=== PATIENT | male | born 1950 | race Caucasian/White ===

== ENCOUNTER 2022-09-30 12:45 | Inpatient (IN) | payer OTHER, MEDICARE ==
[~2022-09-30] VITALS: Ht 175.3 cm; Wt 167.8 kg
[2022-09-30] MEDS ORDERED: DOXAZOSIN MESYLA4 M2 PO (13:12)
[2022-09-30] MEDS ORDERED: TADA10TA PO (13:20)
[2022-09-30] MEDS ORDERED: FURO40 (13:20)
[2022-09-30] MEDS ORDERED: Vitamin D400 UNI1 PO (13:20)
[2022-09-30 13:22] LABS: BASOPHILS ABSOLUTE AUTO 0.04 K/mm3 (0.00-0.23); BASOPHILS PERCENT AUTO 1 % (0-2); EOSINOPHILS ABSOLUTE AUTO 0.05 K/mm3 (0.00-0.68); EOSINOPHILS PERCENT AUTO 1 % (0-6); Hematocrit 47.1 % (37.0-53.0); Hemoglobin 15.4 g/dL (13.5-17.5); IMMATURE GRAN ABSOLUTE AUTO 0.05 K/mm3 (0.00-0.10); IMMATURE GRAN PERCENT AUTO 1 % (0-1); LYMPHOCYTES ABSOLUTE AUTO 0.81 K/mm3 (0.84-5.20); LYMPHOCYTES PERCENT AUTO 12 % (21-46); MONOCYTES ABSOLUTE AUTO 0.56 K/mm3 (0.16-1.47); MONOCYTES PERCENT AUTO 8 % (4-13); Mean Corpuscular HGB Conc 32.7 g/dL (31.5-36.5); Mean Corpuscular Volume 86 fL (80-100); Mean Platelet Volume 10.8 fL (9.1-12.4); NEUTROPHILS ABSOLUTE AUTO 5.43 K/mm3 (1.96-9.15); NEUTROPHILS PERCENT AUTO 78 % (41-73); Platelet Count 171 K/mm3 (150-400); RDW Coefficient Variation 13.8 % (11.7-14.2); RDW Standard Deviation 42.8 fL (35.1-46.3); White Blood Cell Count 6.94 K/mm3 (4.00-11.30)
[2022-09-30 13:48] LABS: Albumin, Blood 3.8 g/dL (3.4-5.0); Bilirubin, Total 0.7 mg/dL (0.1-1.0); Calcium, Blood 8.9 mg/dL (8.5-10.1); Creatinine, Blood 1.31 mg/dL (0.60-1.20); Globulin, Blood 3.7 g/dL (2.2-4.0); Potassium, Blood 4.2 mmol/L (3.5-5.5); Total Protein, Blood 7.5 g/dL (6.4-8.2)
[2022-09-30 18:25] VITALS: BP 185/93
--- NOTE | 2022-09-30 18:35 | NUR ---
PT ASSESSED FOR IGNITION SOURCES, NO FINDINGS.
--- NOTE | 2022-09-30 18:35 | NUR ---
PT ARRIVED TO THE ROOM AT APPROXIMATELYH 1825. PT ALERT AND ORIENTED AND ABLE TO TRANSFER INDEPENDENTLY. PT REPORTS PAIN WITH DEEP BREATHING BUT OTHERWISE DENIES PAIN. CHEST TUBE PLACED TO -20 SUCTION WHICH WAS CONFIRMED WITH DR. VALENZUELA WHEN CONSULT WAS CALLED. PT DENIES SHORTNESS OF BREATH AT THIS TIME. WILL CONTINUE TO MONITOR.
[2022-09-30 19:14] VITALS: BP 182/96
--- NOTE | 2022-09-30 21:58 | NUR ---
CALLED DR. RIOJAS REGARDING PT'S BIPAP SETTINGS FROM [facility] AND THE CURRENT HOSPITAL SETTINGS SET BY RT. DR. RIOJAS VERBALIZED TO KEEP BIPAP SETTINGS PER RT AT THIS TIME AND TO MONITOR PT T/O NOC. THIS RN NOTIFIED RT.
[2022-09-30 22:28] VITALS: BP 178/90
[2022-10-01 00:11] VITALS: BP 160/91
[2022-10-01 04:26] VITALS: BP 181/98
--- NOTE | 2022-10-01 04:52 | NUR ---
SHIFT SUMMARY PT TOLERATED BIPAP SETTINGS T/O NOC. SATS STABLE ON RA WHILE AWAKE. DENIES SOB/CHEST PAIN. REPORTS MINIMAL PAIN WITH DEEP BREATHING AT CHEST TUBE SITE. CHEST TUBE REMAINS TO WALL SUCTION WITH SS DRAINAGE IN CANISTER. NO CREPITUS NOTED. USES URINAL INDEP. EDUCATED ON FIRE SAFETY POLICY. USES CALL LIGHT APPROPRIATELY.
[2022-10-01 05:30] LABS: BASOPHILS ABSOLUTE AUTO 0.04 K/mm3 (0.00-0.23); BASOPHILS PERCENT AUTO 1 % (0-2); EOSINOPHILS ABSOLUTE AUTO 0.15 K/mm3 (0.00-0.68); EOSINOPHILS PERCENT AUTO 2 % (0-6); Hematocrit 46.3 % (37.0-53.0); Hemoglobin 15.2 g/dL (13.5-17.5); IMMATURE GRAN ABSOLUTE AUTO 0.04 K/mm3 (0.00-0.10); IMMATURE GRAN PERCENT AUTO 1 % (0-1); LYMPHOCYTES PERCENT AUTO 15 % (21-46); MONOCYTES ABSOLUTE AUTO 0.87 K/mm3 (0.16-1.47); MONOCYTES PERCENT AUTO 11 % (4-13); Mean Corpuscular HGB 27.9 pg (26.0-34.0); Mean Corpuscular HGB Conc 32.8 g/dL (31.5-36.5); Mean Corpuscular Volume 85 fL (80-100); Mean Platelet Volume 11.1 fL (9.1-12.4); NEUTROPHILS ABSOLUTE AUTO 5.94 K/mm3 (1.96-9.15); NEUTROPHILS PERCENT AUTO 72 % (41-73); Platelet Count 174 K/mm3 (150-400); RDW Coefficient Variation 13.9 % (11.7-14.2); RDW Standard Deviation 42.8 fL (35.1-46.3); Red Blood Cell Count 5.44 M/mm3 (4.30-5.90); White Blood Cell Count 8.24 K/mm3 (4.00-11.30)
[2022-10-01 06:23] LABS: Albumin, Blood 3.3 g/dL (3.4-5.0); Albumin/Globulin Ratio 0.9 (0.8-1.8); Bilirubin, Total 0.7 mg/dL (0.1-1.0); Calcium, Blood 8.6 mg/dL (8.5-10.1); Creatinine, Blood 1.19 mg/dL (0.60-1.20); Globulin, Blood 3.7 g/dL (2.2-4.0)
[2022-10-01 08:10] VITALS: BP 186/102
--- NOTE | 2022-10-01 11:37 | NUR ---
CHEST TUBE TO WATER SEAL AT THIS TIME PER ORDER
[2022-10-01 14:08] VITALS: BP 175/102
--- NOTE | 2022-10-01 15:02 | NUR ---
CONTINUED HTN. PT DENIES ANY SYMPTOMS. 10MG HYDRALAZINE GIVEN, WILL CTM
[2022-10-01 16:32] VITALS: BP 154/94
--- NOTE | 2022-10-01 17:58 | NUR ---
SUMMARY: PT ADMITTED FOR PNEUMOTHORAX. A/O, VSS-BP BETTER TONIGHT. CHEST TUBE CONTINUES ON WATER SEAL, DRESSINGS ARE CDI. THERE IS SOME SS DRAINAGE IN TUBING. PT HAS DENIED NEED FOR PAIN MEDICATION, DENIES SOB. STABLE ON RA. PLAN IS FOR CLAMPING CHEST TUBE TONIGHT AT 0000. PT USING CALL LIGHT. WILL PASS REPORT TO JERRY BRAN.
[2022-10-01 19:09] VITALS: BP 148/79
[2022-10-02 06:11] VITALS: BP 172/94
--- NOTE | 2022-10-02 06:23 | NUR ---
SHIFT SUMMARY ADMIT FOR PNEUMO TO LEFT. PIGTAIL CHEST TUBE TO LEFT UPPER ANTERIOR COVERED W/ PRESSURE TAPE. CLAMPED AT MN ORDERED. PT DENIES SOB, PAIN, OR DISCOMFORT T/O SHIFT. LUNGS CLEAR ALTHOUGH DIMINISHED IN LOWER LOBES. SITE ATTEMPT TO L LATERAL UNDERARM CLEAR W/ NO REDNESS, SWELLING, OR DRAINAGE. PT CONTINUES TO EXPERIENCE HTN THAT REQUIRED HYDROLAZINE THIS A.M. PT URINATING INDEPEND W/ URINAL AT BEDSIDE. IV-SL TO R AC, NO CONCERNS. PT AWAITING A.M. CXR TO DETERMINE DISCHARGE. CALL LIGHT W/ IN REACH, NO ACUTE CHANGES THIS SHIFT.
[2022-10-02 07:22] VITALS: BP 156/97
[2022-10-02 14:20] VITALS: BP 156/97
[2022-10-02] MEDS ORDERED: LOSA50 PO (15:28)
[2022-10-02 15:39] VITALS: BP 182/113
--- NOTE | 2022-10-02 17:03 | NUR ---
DISCHARGE PT LEFT VIA [facility] WITH [facility], ALL BELONGINGS WITH PATIENT. PT GOING TO ROOM 4431 AT [facility]. REPORT CALLED TO ANAM. PT DENIES SOB DURING SHIFT, CHEST TUBE REMAINS CLAMPED SINCE MIDNIGHT. PT TOLERATING DIET WELL, CALLS APPROPRIATLY AND MAKES HIS NEEDS MET. IV SALINE LOCKED TO R-AC.
--- NOTE | 2022-10-02 17:40 | NUR ---
final report given to omar altamirano.
== END 2022-10-02 17:10 | disposition short-term general hospital (02) | DRG 200 ==
LOC: ER 12:45 → SURS 12:46
PROVIDERS: Emergency Medicine; Family Medicine; ADMIT Internal Medicine
PROC: 0W9B30Z Drainage of Left Pleural Cavity with Drainage Device, Percutaneous Approach (ICD-10-PCS; principal; 2022-09-30)
PROC: 5A09357 Assistance with Respiratory Ventilation, Less than 24 Consecutive Hours, Continuous Positive Airway Pressure (ICD-10-PCS; 2022-10-02)
DX: J93.83 Other pneumothorax (principal); I50.32 Chronic diastolic (congestive) heart failure; J98.11 Atelectasis; Z68.43 Body mass index [BMI] 50.0-59.9, adult; G47.33 Obstructive sleep apnea (adult) (pediatric); E66.9 Obesity, unspecified; I11.0 Hypertensive heart disease with heart failure; E89.0 Postprocedural hypothyroidism; H26.9 Unspecified cataract; K42.9 Umbilical hernia without obstruction or gangrene; N40.0 Benign prostatic hyperplasia without lower urinary tract symptoms; F17.210 Nicotine dependence, cigarettes, uncomplicated; I71.21 Aneurysm of the ascending aorta, without rupture; Z66 Do not resuscitate; Z88.0 Allergy status to penicillin; Z79.899 Other long term (current) drug therapy
CPT/HCPCS: 32551; 36415; 71045; 71046; 71250; 80053; 85025; 93005; 93010; 94660; 94762; 99285-25; A9270; J0360

== ENCOUNTER 2023-08-28 11:30 | Emergency (ER) | payer OTHER, MEDICARE ==
[~2023-08-28] VITALS: Ht 175.3 cm; Wt 151.9 kg
[~2023-08-28 11:30] MED LIST: DOXAZOSIN MESYLA4 M2 PO; FURO40; LOSA50 PO; TADA10TA PO; Vitamin D400 UNI1 PO
[2023-08-28] MEDS ORDERED: Robaxin750 MG PO (14:43)
[2023-08-28] MEDS ORDERED: METPRE4DP PO (14:43)
[2023-08-28] MEDS ORDERED: CODACE30 PO (14:43)
[2023-08-28 15:14] VITALS: BP 153/92
== END 2023-08-28 15:10 | disposition home or self-care (01) ==
LOC: ER 11:30
DX: M54.50 Low back pain, unspecified (principal); G89.29 Other chronic pain; V43.52XA Car driver injured in collision with other type car in traffic accident, initial encounter; Z88.0 Allergy status to penicillin; Z79.899 Other long term (current) drug therapy; I10 Essential (primary) hypertension
CPT/HCPCS: 72131; 99283-25

== ENCOUNTER 2023-10-14 04:14 | Day surgery (SDC) | payer OTHER, MEDICARE ==
[~2023-10-14 04:14] MED LIST changes: +CODACE30 PO; +METPRE4DP PO; +Robaxin750 MG PO
== END 2023-10-14 23:02 | disposition home or self-care (01) ==
LOC: WOUND 04:14
DX: L97.822 Non-pressure chronic ulcer of other part of left lower leg with fat layer exposed (principal); I89.0 Lymphedema, not elsewhere classified; I10 Essential (primary) hypertension; I73.9 Peripheral vascular disease, unspecified; I87.2 Venous insufficiency (chronic) (peripheral); G47.30 Sleep apnea, unspecified; S81.802D Unspecified open wound, left lower leg, subsequent encounter; Z88.0 Allergy status to penicillin; V89.2XXD Person injured in unspecified motor-vehicle accident, traffic, subsequent encounter
CPT/HCPCS: G0463

== ENCOUNTER 2023-11-04 05:38 | Day surgery (SDC) | payer OTHER, MEDICARE | END 2023-11-04 23:14 | disposition home or self-care (01) | LOC: WOUND 05:38 | DX: L97.822 Non-pressure chronic ulcer of other part of left lower leg with fat layer exposed (principal); S81.802A Unspecified open wound, left lower leg, initial encounter; I73.9 Peripheral vascular disease, unspecified; I87.2 Venous insufficiency (chronic) (peripheral); V89.2XXA Person injured in unspecified motor-vehicle accident, traffic, initial encounter ==

== ENCOUNTER 2023-11-06 03:12 | Day surgery (SDC) | payer OTHER, MEDICARE | END 2023-11-06 23:48 | disposition home or self-care (01) | LOC: WOUND 03:12 | DX: L97.822 Non-pressure chronic ulcer of other part of left lower leg with fat layer exposed (principal); I87.2 Venous insufficiency (chronic) (peripheral) ==

== ENCOUNTER 2023-11-13 01:46 | Day surgery (SDC) | payer OTHER, MEDICARE | END 2023-11-13 23:14 | disposition home or self-care (01) | LOC: WOUND 01:46 | DX: I87.312 Chronic venous hypertension (idiopathic) with ulcer of left lower extremity (principal); L97.222 Non-pressure chronic ulcer of left calf with fat layer exposed; I87.2 Venous insufficiency (chronic) (peripheral); I73.9 Peripheral vascular disease, unspecified; V89.2XXD Person injured in unspecified motor-vehicle accident, traffic, subsequent encounter ==

== ENCOUNTER 2023-11-20 01:51 | Day surgery (SDC) | payer OTHER, MEDICARE | END 2023-11-20 23:33 | disposition home or self-care (01) | LOC: WOUND 01:51 | DX: I87.312 Chronic venous hypertension (idiopathic) with ulcer of left lower extremity (principal); L97.222 Non-pressure chronic ulcer of left calf with fat layer exposed; I87.2 Venous insufficiency (chronic) (peripheral); I73.9 Peripheral vascular disease, unspecified; V89.2XXD Person injured in unspecified motor-vehicle accident, traffic, subsequent encounter ==

== ENCOUNTER 2023-12-04 04:33 | Day surgery (SDC) | payer OTHER, MEDICARE | END 2023-12-05 01:45 | disposition home or self-care (01) | LOC: WOUND 04:33 | DX: I87.312 Chronic venous hypertension (idiopathic) with ulcer of left lower extremity (principal); L97.222 Non-pressure chronic ulcer of left calf with fat layer exposed; I87.2 Venous insufficiency (chronic) (peripheral); I73.9 Peripheral vascular disease, unspecified; V89.2XXD Person injured in unspecified motor-vehicle accident, traffic, subsequent encounter ==

== ENCOUNTER 2023-12-10 03:01 | Day surgery (SDC) | payer OTHER, MEDICARE | END 2023-12-10 23:00 | disposition home or self-care (01) | LOC: WOUND 03:01 | DX: I87.312 Chronic venous hypertension (idiopathic) with ulcer of left lower extremity (principal); L97.222 Non-pressure chronic ulcer of left calf with fat layer exposed; I87.2 Venous insufficiency (chronic) (peripheral); I73.9 Peripheral vascular disease, unspecified ==

== ENCOUNTER 2023-12-18 01:15 | Day surgery (SDC) | payer OTHER, MEDICARE | END 2023-12-19 03:08 | disposition home or self-care (01) | LOC: WOUND 01:15 | DX: I87.312 Chronic venous hypertension (idiopathic) with ulcer of left lower extremity (principal); L97.222 Non-pressure chronic ulcer of left calf with fat layer exposed; I73.9 Peripheral vascular disease, unspecified; I10 Essential (primary) hypertension ==

== ENCOUNTER 2023-12-25 04:01 | Day surgery (SDC) | payer OTHER, MEDICARE | END 2023-12-26 01:28 | disposition home or self-care (01) | LOC: WOUND 04:01 | DX: I87.312 Chronic venous hypertension (idiopathic) with ulcer of left lower extremity (principal); L97.222 Non-pressure chronic ulcer of left calf with fat layer exposed; I87.2 Venous insufficiency (chronic) (peripheral); I73.9 Peripheral vascular disease, unspecified; V89.2XXD Person injured in unspecified motor-vehicle accident, traffic, subsequent encounter ==

== ENCOUNTER 2024-01-01 03:00 | Day surgery (SDC) | payer OTHER, MEDICARE | END 2024-01-01 23:45 | disposition home or self-care (01) | LOC: WOUND 03:00 | DX: I87.312 Chronic venous hypertension (idiopathic) with ulcer of left lower extremity (principal); L97.822 Non-pressure chronic ulcer of other part of left lower leg with fat layer exposed; I73.9 Peripheral vascular disease, unspecified ==

== ENCOUNTER 2024-01-07 03:05 | Day surgery (SDC) | payer OTHER, MEDICARE ==
[2024-01-07] MEDS ORDERED: Lidocaine HCl 4% Cream 5 GM ONE (15:01)
== END 2024-01-07 23:29 | disposition home or self-care (01) ==
LOC: WOUND 03:05
DX: I87.312 Chronic venous hypertension (idiopathic) with ulcer of left lower extremity (principal); L97.822 Non-pressure chronic ulcer of other part of left lower leg with fat layer exposed; I73.9 Peripheral vascular disease, unspecified; I10 Essential (primary) hypertension
CPT/HCPCS: A9270

== ENCOUNTER 2024-01-15 04:16 | Day surgery (SDC) | payer OTHER, MEDICARE | END 2024-01-16 00:05 | disposition home or self-care (01) | LOC: WOUND 04:16 | DX: I87.312 Chronic venous hypertension (idiopathic) with ulcer of left lower extremity (principal); L97.222 Non-pressure chronic ulcer of left calf with fat layer exposed; I87.2 Venous insufficiency (chronic) (peripheral); I73.9 Peripheral vascular disease, unspecified; V89.2XXD Person injured in unspecified motor-vehicle accident, traffic, subsequent encounter ==

== ENCOUNTER 2024-01-22 04:27 | Day surgery (SDC) | payer OTHER, MEDICARE | END 2024-01-23 03:12 | disposition home or self-care (01) | LOC: WOUND 04:27 | DX: I87.312 Chronic venous hypertension (idiopathic) with ulcer of left lower extremity (principal); L97.222 Non-pressure chronic ulcer of left calf with fat layer exposed; I87.2 Venous insufficiency (chronic) (peripheral); I73.9 Peripheral vascular disease, unspecified; V89.2XXD Person injured in unspecified motor-vehicle accident, traffic, subsequent encounter ==

== ENCOUNTER 2024-02-10 00:32 | Day surgery (SDC) | payer OTHER, MEDICARE | END 2024-02-10 23:06 | disposition home or self-care (01) | LOC: WOUND 00:32 | DX: I87.312 Chronic venous hypertension (idiopathic) with ulcer of left lower extremity (principal); L97.822 Non-pressure chronic ulcer of other part of left lower leg with fat layer exposed; I87.2 Venous insufficiency (chronic) (peripheral); I73.9 Peripheral vascular disease, unspecified; V89.2XXD Person injured in unspecified motor-vehicle accident, traffic, subsequent encounter ==

== ENCOUNTER 2024-02-19 04:57 | Day surgery (SDC) | payer OTHER, MEDICARE | END 2024-02-19 23:00 | disposition home or self-care (01) | LOC: WOUND 04:57 | DX: I87.312 Chronic venous hypertension (idiopathic) with ulcer of left lower extremity (principal); L97.822 Non-pressure chronic ulcer of other part of left lower leg with fat layer exposed; I87.2 Venous insufficiency (chronic) (peripheral); I73.9 Peripheral vascular disease, unspecified ==

== ENCOUNTER 2024-02-26 04:03 | Day surgery (SDC) | payer OTHER, MEDICARE | END 2024-02-26 23:00 | disposition home or self-care (01) | LOC: WOUND 04:03 | DX: I87.312 Chronic venous hypertension (idiopathic) with ulcer of left lower extremity (principal); L97.222 Non-pressure chronic ulcer of left calf with fat layer exposed; I87.2 Venous insufficiency (chronic) (peripheral); I73.9 Peripheral vascular disease, unspecified; V89.2XXD Person injured in unspecified motor-vehicle accident, traffic, subsequent encounter ==

== ENCOUNTER 2024-03-04 05:40 | Day surgery (SDC) | payer OTHER, MEDICARE | END 2024-03-04 21:00 | disposition home or self-care (01) | LOC: WOUND 05:40 | DX: I87.312 Chronic venous hypertension (idiopathic) with ulcer of left lower extremity (principal); L97.222 Non-pressure chronic ulcer of left calf with fat layer exposed; I87.2 Venous insufficiency (chronic) (peripheral); I73.9 Peripheral vascular disease, unspecified ==

== ENCOUNTER 2024-03-14 02:59 | Day surgery (SDC) | payer OTHER, MEDICARE ==
[2024-03-14] MEDS ORDERED: Triamcinolone Acet 0.1% Cream 15 gm ONE (08:19)
== END 2024-03-14 23:00 | disposition home or self-care (01) ==
LOC: WOUND 02:59
DX: I87.312 Chronic venous hypertension (idiopathic) with ulcer of left lower extremity (principal); L97.222 Non-pressure chronic ulcer of left calf with fat layer exposed; I87.2 Venous insufficiency (chronic) (peripheral); I73.9 Peripheral vascular disease, unspecified; V89.2XXD Person injured in unspecified motor-vehicle accident, traffic, subsequent encounter
CPT/HCPCS: A9270

== ENCOUNTER 2024-03-18 04:53 | Day surgery (SDC) | payer OTHER, MEDICARE | END 2024-03-18 23:00 | disposition home or self-care (01) | LOC: WOUND 04:53 | DX: I87.312 Chronic venous hypertension (idiopathic) with ulcer of left lower extremity (principal); L97.822 Non-pressure chronic ulcer of other part of left lower leg with fat layer exposed; I87.2 Venous insufficiency (chronic) (peripheral); I73.9 Peripheral vascular disease, unspecified ==

== ENCOUNTER 2024-03-25 06:57 | Day surgery (SDC) | payer OTHER, MEDICARE | END 2024-03-25 23:00 | disposition home or self-care (01) | LOC: WOUND 06:57 | DX: I87.312 Chronic venous hypertension (idiopathic) with ulcer of left lower extremity (principal); L97.222 Non-pressure chronic ulcer of left calf with fat layer exposed; I87.2 Venous insufficiency (chronic) (peripheral); I73.9 Peripheral vascular disease, unspecified ==

== ENCOUNTER 2024-04-01 03:08 | Day surgery (SDC) | payer OTHER, MEDICARE | END 2024-04-01 23:00 | disposition home or self-care (01) | LOC: WOUND 03:08 | DX: I87.312 Chronic venous hypertension (idiopathic) with ulcer of left lower extremity (principal); L97.222 Non-pressure chronic ulcer of left calf with fat layer exposed; I87.2 Venous insufficiency (chronic) (peripheral); I73.9 Peripheral vascular disease, unspecified ==

== ENCOUNTER 2024-04-08 04:45 | Day surgery (SDC) | payer OTHER, MEDICARE | END 2024-04-10 23:00 | disposition home or self-care (01) | LOC: WOUND 04:45 | DX: I87.312 Chronic venous hypertension (idiopathic) with ulcer of left lower extremity (principal); L97.222 Non-pressure chronic ulcer of left calf with fat layer exposed; I87.2 Venous insufficiency (chronic) (peripheral); I73.9 Peripheral vascular disease, unspecified; V89.2XXD Person injured in unspecified motor-vehicle accident, traffic, subsequent encounter ==

== ENCOUNTER 2024-04-15 06:34 | Day surgery (SDC) | payer OTHER, MEDICARE ==
[2024-04-15] MEDS ORDERED: Triamcinolone Acet 0.1% Cream 15 gm ONE (15:53)
== END 2024-04-15 23:00 ==
LOC: WOUND 06:34
DX: I87.312 Chronic venous hypertension (idiopathic) with ulcer of left lower extremity (principal); L97.822 Non-pressure chronic ulcer of other part of left lower leg with fat layer exposed; I87.2 Venous insufficiency (chronic) (peripheral); I73.9 Peripheral vascular disease, unspecified; V89.2XXD Person injured in unspecified motor-vehicle accident, traffic, subsequent encounter
CPT/HCPCS: A9270

== ENCOUNTER 2024-04-22 04:55 | Day surgery (SDC) | payer OTHER, MEDICARE | END 2024-04-22 23:00 | disposition home or self-care (01) | LOC: WOUND 04:55 | DX: I87.312 Chronic venous hypertension (idiopathic) with ulcer of left lower extremity (principal); L97.822 Non-pressure chronic ulcer of other part of left lower leg with fat layer exposed; I87.2 Venous insufficiency (chronic) (peripheral); I73.9 Peripheral vascular disease, unspecified ==

== ENCOUNTER 2024-05-06 04:04 | Day surgery (SDC) | payer OTHER, MEDICARE | END 2024-05-06 23:00 | disposition home or self-care (01) | LOC: WOUND 04:04 | DX: I87.312 Chronic venous hypertension (idiopathic) with ulcer of left lower extremity (principal); L97.822 Non-pressure chronic ulcer of other part of left lower leg with fat layer exposed; I87.2 Venous insufficiency (chronic) (peripheral); I73.9 Peripheral vascular disease, unspecified ==

== ENCOUNTER 2024-05-13 03:03 | Day surgery (SDC) | payer OTHER, MEDICARE | END 2024-05-13 23:00 | disposition home or self-care (01) | LOC: WOUND 03:03 | DX: I87.312 Chronic venous hypertension (idiopathic) with ulcer of left lower extremity (principal); L97.222 Non-pressure chronic ulcer of left calf with fat layer exposed; I87.2 Venous insufficiency (chronic) (peripheral); I73.9 Peripheral vascular disease, unspecified; V89.2XXA Person injured in unspecified motor-vehicle accident, traffic, initial encounter ==

== ENCOUNTER 2024-05-20 05:12 | Day surgery (SDC) | payer OTHER, MEDICARE | END 2024-05-20 23:00 | disposition home or self-care (01) | LOC: WOUND 05:12 | DX: I87.312 Chronic venous hypertension (idiopathic) with ulcer of left lower extremity (principal); L97.822 Non-pressure chronic ulcer of other part of left lower leg with fat layer exposed; I87.2 Venous insufficiency (chronic) (peripheral); I73.9 Peripheral vascular disease, unspecified ==

== ENCOUNTER 2024-05-27 04:31 | Day surgery (SDC) | payer OTHER, MEDICARE | END 2024-05-27 23:00 | disposition home or self-care (01) | LOC: WOUND 04:31 | DX: I87.312 Chronic venous hypertension (idiopathic) with ulcer of left lower extremity (principal); L97.222 Non-pressure chronic ulcer of left calf with fat layer exposed; I87.2 Venous insufficiency (chronic) (peripheral); I73.9 Peripheral vascular disease, unspecified ==

== ENCOUNTER 2024-06-03 03:35 | Day surgery (SDC) | payer OTHER, MEDICARE | END 2024-06-03 23:00 | disposition home or self-care (01) | LOC: WOUND 03:35 | DX: I87.312 Chronic venous hypertension (idiopathic) with ulcer of left lower extremity (principal); L97.822 Non-pressure chronic ulcer of other part of left lower leg with fat layer exposed; I87.2 Venous insufficiency (chronic) (peripheral); I73.9 Peripheral vascular disease, unspecified ==

== ENCOUNTER 2024-06-17 00:38 | Day surgery (SDC) | payer OTHER, MEDICARE | END 2024-06-17 23:00 | disposition home or self-care (01) | LOC: WOUND 00:38 | DX: I87.312 Chronic venous hypertension (idiopathic) with ulcer of left lower extremity (principal); L97.822 Non-pressure chronic ulcer of other part of left lower leg with fat layer exposed; I87.2 Venous insufficiency (chronic) (peripheral); I73.9 Peripheral vascular disease, unspecified; Z87.828 Personal history of other (healed) physical injury and trauma | CPT/HCPCS: G0463 ==

== ENCOUNTER 2024-07-08 03:03 | Day surgery (SDC) | payer OTHER, MEDICARE | END 2024-07-08 23:00 | disposition home or self-care (01) | LOC: WOUND 03:03 | DX: I87.312 Chronic venous hypertension (idiopathic) with ulcer of left lower extremity (principal); L97.222 Non-pressure chronic ulcer of left calf with fat layer exposed; I87.2 Venous insufficiency (chronic) (peripheral); I73.9 Peripheral vascular disease, unspecified ==

== ENCOUNTER 2024-07-15 03:33 | Day surgery (SDC) | payer OTHER, MEDICARE | END 2024-07-15 23:00 | disposition home or self-care (01) | LOC: WOUND 03:33 | DX: I87.312 Chronic venous hypertension (idiopathic) with ulcer of left lower extremity (principal); L97.222 Non-pressure chronic ulcer of left calf with fat layer exposed; L97.822 Non-pressure chronic ulcer of other part of left lower leg with fat layer exposed; I87.2 Venous insufficiency (chronic) (peripheral); I73.9 Peripheral vascular disease, unspecified ==

== ENCOUNTER 2024-07-22 05:13 | Day surgery (SDC) | payer OTHER, MEDICARE | END 2024-07-22 23:00 | disposition home or self-care (01) | LOC: WOUND 05:13 | DX: I87.312 Chronic venous hypertension (idiopathic) with ulcer of left lower extremity (principal); L97.222 Non-pressure chronic ulcer of left calf with fat layer exposed; I87.2 Venous insufficiency (chronic) (peripheral); I73.9 Peripheral vascular disease, unspecified; V89.2XXD Person injured in unspecified motor-vehicle accident, traffic, subsequent encounter ==

== ENCOUNTER 2024-07-27 03:23 | Day surgery (SDC) | payer OTHER, MEDICARE | END 2024-07-27 23:00 | disposition home or self-care (01) | LOC: WOUND 03:23 | DX: I87.312 Chronic venous hypertension (idiopathic) with ulcer of left lower extremity (principal); L97.222 Non-pressure chronic ulcer of left calf with fat layer exposed; I87.2 Venous insufficiency (chronic) (peripheral); I73.9 Peripheral vascular disease, unspecified ==

== ENCOUNTER 2024-08-18 04:48 | Day surgery (SDC) | payer OTHER, MEDICARE ==
[2024-08-18] MEDS ORDERED: Lidocaine HCl 4% Cream 5 GM ONE (15:30)
== END 2024-08-18 23:50 | disposition home or self-care (01) ==
LOC: WOUND 04:48
DX: I87.312 Chronic venous hypertension (idiopathic) with ulcer of left lower extremity (principal); L97.222 Non-pressure chronic ulcer of left calf with fat layer exposed; I87.2 Venous insufficiency (chronic) (peripheral); I73.9 Peripheral vascular disease, unspecified; V89.2XXD Person injured in unspecified motor-vehicle accident, traffic, subsequent encounter
CPT/HCPCS: A9270

== ENCOUNTER 2024-09-14 03:06 | Day surgery (SDC) | payer OTHER, MEDICARE | END 2024-09-14 23:00 | disposition home or self-care (01) | LOC: WOUND | DX: I87.312 Chronic venous hypertension (idiopathic) with ulcer of left lower extremity (principal); L97.222 Non-pressure chronic ulcer of left calf with fat layer exposed; I87.2 Venous insufficiency (chronic) (peripheral); I73.9 Peripheral vascular disease, unspecified; V89.2XXD Person injured in unspecified motor-vehicle accident, traffic, subsequent encounter ==

== ENCOUNTER 2024-09-23 01:50 | Day surgery (SDC) | payer OTHER, MEDICARE | END 2024-09-23 23:00 | disposition home or self-care (01) | LOC: WOUND 01:50 | DX: I87.312 Chronic venous hypertension (idiopathic) with ulcer of left lower extremity (principal); L97.222 Non-pressure chronic ulcer of left calf with fat layer exposed; I87.2 Venous insufficiency (chronic) (peripheral); I73.9 Peripheral vascular disease, unspecified; V89.2XXD Person injured in unspecified motor-vehicle accident, traffic, subsequent encounter ==

== ENCOUNTER 2024-09-30 06:08 | Day surgery (SDC) | payer OTHER, MEDICARE | END 2024-09-30 23:00 | disposition home or self-care (01) | LOC: WOUND 06:08 | DX: I87.312 Chronic venous hypertension (idiopathic) with ulcer of left lower extremity (principal); L97.222 Non-pressure chronic ulcer of left calf with fat layer exposed; I87.2 Venous insufficiency (chronic) (peripheral); I73.9 Peripheral vascular disease, unspecified; V89.2XXD Person injured in unspecified motor-vehicle accident, traffic, subsequent encounter ==

== ENCOUNTER 2024-10-07 03:09 | Day surgery (SDC) | payer OTHER, MEDICARE | END 2024-10-07 23:00 | disposition home or self-care (01) | LOC: WOUND 03:09 | DX: I87.312 Chronic venous hypertension (idiopathic) with ulcer of left lower extremity (principal); L97.222 Non-pressure chronic ulcer of left calf with fat layer exposed; I87.2 Venous insufficiency (chronic) (peripheral); I73.9 Peripheral vascular disease, unspecified; V89.2XXA Person injured in unspecified motor-vehicle accident, traffic, initial encounter ==

== ENCOUNTER 2024-10-14 04:25 | Day surgery (SDC) | payer OTHER, MEDICARE | END 2024-10-14 23:00 | disposition home or self-care (01) | LOC: WOUND 04:25 | DX: I87.312 Chronic venous hypertension (idiopathic) with ulcer of left lower extremity (principal); L97.222 Non-pressure chronic ulcer of left calf with fat layer exposed; I87.2 Venous insufficiency (chronic) (peripheral); I73.9 Peripheral vascular disease, unspecified; V89.2XXD Person injured in unspecified motor-vehicle accident, traffic, subsequent encounter ==

== ENCOUNTER 2024-11-04 01:05 | Day surgery (SDC) | payer OTHER, MEDICARE | END 2024-11-04 23:00 | disposition home or self-care (01) | LOC: WOUND 01:05 | DX: I87.312 Chronic venous hypertension (idiopathic) with ulcer of left lower extremity (principal); L97.222 Non-pressure chronic ulcer of left calf with fat layer exposed; I87.2 Venous insufficiency (chronic) (peripheral); I73.9 Peripheral vascular disease, unspecified ==

== ENCOUNTER 2024-11-11 03:28 | Day surgery (SDC) | payer OTHER, MEDICARE | END 2024-11-11 23:43 | disposition home or self-care (01) | LOC: WOUND 03:28 | DX: I87.312 Chronic venous hypertension (idiopathic) with ulcer of left lower extremity (principal); L97.821 Non-pressure chronic ulcer of other part of left lower leg limited to breakdown of skin; I87.2 Venous insufficiency (chronic) (peripheral); I73.9 Peripheral vascular disease, unspecified ==

== ENCOUNTER 2024-11-18 03:37 | Day surgery (SDC) | payer OTHER, MEDICARE | END 2024-11-18 23:00 | disposition home or self-care (01) | LOC: WOUND 03:37 | DX: I87.312 Chronic venous hypertension (idiopathic) with ulcer of left lower extremity (principal); L97.222 Non-pressure chronic ulcer of left calf with fat layer exposed; I87.2 Venous insufficiency (chronic) (peripheral); I73.9 Peripheral vascular disease, unspecified; V89.2XXD Person injured in unspecified motor-vehicle accident, traffic, subsequent encounter ==

== ENCOUNTER 2024-11-24 00:35 | Day surgery (SDC) | payer OTHER, MEDICARE | END 2024-11-24 23:00 | disposition home or self-care (01) | LOC: WOUND 00:35 | DX: L97.822 Non-pressure chronic ulcer of other part of left lower leg with fat layer exposed (principal) ==

== ENCOUNTER 2024-11-30 02:37 | Day surgery (SDC) | payer OTHER, MEDICARE | END 2024-11-30 23:00 | disposition home or self-care (01) | LOC: WOUND 02:37 | DX: I87.312 Chronic venous hypertension (idiopathic) with ulcer of left lower extremity (principal); L97.821 Non-pressure chronic ulcer of other part of left lower leg limited to breakdown of skin; I87.2 Venous insufficiency (chronic) (peripheral); I73.9 Peripheral vascular disease, unspecified | CPT/HCPCS: G0463 ==